=== PATIENT | female | born 1965 | race Caucasian/White ===

== ENCOUNTER 2020-03-12 18:40 | Emergency (ER) | payer OTHER ==
[~2020-03-12] VITALS: Ht 160 cm; Wt 75.0 kg
[2020-03-12 18:42] VITALS: BP 134/101
[2020-03-12] MEDS ORDERED: HYDROcodone/acetaminophen 5mg/325mg tablet PO ONE (19:45)
== END 2020-03-12 19:55 | disposition home or self-care (01) ==
LOC: ER 18:40
DX: S89.92XA Unspecified injury of left lower leg, initial encounter (principal); M25.562 Pain in left knee; R11.0 Nausea; Z88.8 Allergy status to other drugs, medicaments and biological substances; W50.2XXA Accidental twist by another person, initial encounter; Y93.02 Activity, running; Y92.89 Other specified places as the place of occurrence of the external cause; Y99.8 Other external cause status
CPT/HCPCS: 29505; 29515; 73564; 99283